=== PATIENT | male | born 1955 | race African-American/Black ===

== ENCOUNTER 2016-04-09 07:45 | Emergency (ER) | payer MEDICARE ==
[2016-04-09 08:23] LABS: APPEARANCE CLEAR (CLEAR); BILIRUBIN NEGATIVE (NEGATIVE); COLOR STRAW (YELLOW); GLUCOSE NEGATIVE (NEGATIVE); KETONE NEGATIVE (NEGATIVE); LEUKOCYTE ESTERASE NEGATIVE (NEGATIVE); NITRITE NEGATIVE (NEGATIVE); PROTEIN NEGATIVE (NEGATIVE); UROBILINOGEN NORMAL (NORMAL)
== END 2016-04-09 08:50 | disposition home or self-care (01) ==
LOC: D.ER 07:45
PROVIDERS: Emergency Medicine Emergency Medical Services
DX: M62.838 Other muscle spasm (principal); F10.129 Alcohol abuse with intoxication, unspecified; F17.200 Nicotine dependence, unspecified, uncomplicated

== ENCOUNTER 2016-06-05 17:29 | Emergency (ER) | payer MEDICARE ==
[2016-06-05 17:58] LABS: BASOPHILS 0.2 % (0.0-2.0); EOSINOPHILS 0.7 % (0-7); HEMATOCRIT 40.3 % (42.0-54.0); HEMOGLOBIN 13.7 g/dL (13.5-17.5); IMMATURE GRANULOCYTES 0.1 % (0-5); LYMPHOCYTES 38.9 % (15-50); MCH 30.1 pg (26.0-34.0); MCV 88.6 fL (80.0-100.0); MEAN PLATELET VOLUME 10.7 fL (7.4-10.4); MONOCYTES 7.2 % (2-11); NEUTROPHILS 52.9 % (40-80); PLATELET COUNT 210 10x3/uL (130-400); RBC 4.55 10x6/uL (4.20-6.10); RDW 13.5 % (11.5-14.5); WBC 9.1 10x3/uL (4.8-10.8)
[2016-06-05 18:14] LABS: ALBUMIN 4.1 g/dL (3.4-5.0); ANION GAP 12.3 mmol/L (8-16); BILIRUBIN - TOTAL 0.68 mg/dL (0.2-1.3); CALCIUM 8.2 mg/dL (8.5-10.1); CREATININE - SERUM 1.2 mg/dL (0.6-1.3); POTASSIUM - SERUM 4.3 mmol/L (3.5-5.1); PROTEIN - SERUM 7.9 g/dL (6.4-8.2)
[2016-06-06 03:37] LABS: APPEARANCE CLEAR (CLEAR); BILIRUBIN NEGATIVE (NEGATIVE); COLOR YELLOW (YELLOW); GLUCOSE NEGATIVE (NEGATIVE); KETONE SMALL mg/dL (NEGATIVE); LEUKOCYTE ESTERASE NEGATIVE (NEGATIVE); NITRITE NEGATIVE (NEGATIVE); PROTEIN NEGATIVE (NEGATIVE); SPECIFIC GRAVITY 1.025 (1.005-1.020); UROBILINOGEN NORMAL (NORMAL)
[2016-06-06 03:43] LABS: UDS - AMPHET NEGATIVE QUAL (NEGATIVE); UDS - BARB NEGATIVE QUAL (NEGATIVE); UDS - BENZO POSITIVE QUAL (NEGATIVE); UDS - COCAINE POSITIVE QUAL (NEGATIVE); UDS - METH NEGATIVE QUAL (NEGATIVE); UDS - OPIATE NEGATIVE QUAL (NEGATIVE); UDS - PCP NEGATIVE QUAL (NEGATIVE); UDS - THC NEGATIVE QUAL (NEGATIVE)
== END 2016-06-06 11:28 | disposition short-term general hospital (02) ==
LOC: D.ER 17:29
PROVIDERS: Emergency Medicine
DX: F10.129 Alcohol abuse with intoxication, unspecified (principal); F33.9 Major depressive disorder, recurrent, unspecified; R45.851 Suicidal ideations

== ENCOUNTER 2016-06-27 04:39 | Emergency (ER) | payer MEDICARE ==
[2016-06-27 05:10] LABS: BASOPHILS 0.1 % (0.0-2.0); EOSINOPHILS 0.5 % (0-7); HEMATOCRIT 36.7 % (42.0-54.0); HEMOGLOBIN 12.9 g/dL (13.5-17.5); IMMATURE GRANULOCYTES 0.2 % (0-5); LYMPHOCYTES 41.7 % (15-50); MCH 29.9 pg (26.0-34.0); MCHC 35.1 g/dL (31.0-37.0); MCV 85.2 fL (80.0-100.0); MEAN PLATELET VOLUME 11.1 fL (7.4-10.4); MONOCYTES 7.6 % (2-11); NEUTROPHILS 49.9 % (40-80); PLATELET COUNT 246 10x3/uL (130-400); RBC 4.31 10x6/uL (4.20-6.10); RDW 12.8 % (11.5-14.5); WBC 8.8 10x3/uL (4.8-10.8)
[2016-06-27 05:26] LABS: ALBUMIN 3.5 g/dL (3.4-5.0); ANION GAP 15.8 mmol/L (8-16); BILIRUBIN - TOTAL 0.34 mg/dL (0.2-1.3); CALCIUM 8.4 mg/dL (8.5-10.1); CARBON DIOXIDE 23.8 mmol/L (21.0-32.0); CREATININE - SERUM 1.2 mg/dL (0.6-1.3); POTASSIUM - SERUM 3.6 mmol/L (3.5-5.1); PROTEIN - SERUM 7.7 g/dL (6.4-8.2)
[2016-06-27 05:33] LABS: APPEARANCE CLEAR (CLEAR); BILIRUBIN NEGATIVE (NEGATIVE); COLOR YELLOW (YELLOW); GLUCOSE NEGATIVE (NEGATIVE); KETONE NEGATIVE (NEGATIVE); LEUKOCYTE ESTERASE NEGATIVE (NEGATIVE); NITRITE NEGATIVE (NEGATIVE); PROTEIN NEGATIVE (NEGATIVE); SPECIFIC GRAVITY 1.015 (1.005-1.020); UROBILINOGEN NORMAL (NORMAL)
[2016-06-27 05:39] LABS: UDS - AMPHET NEGATIVE QUAL (NEGATIVE); UDS - BARB NEGATIVE QUAL (NEGATIVE); UDS - BENZO POSITIVE QUAL (NEGATIVE); UDS - COCAINE POSITIVE QUAL (NEGATIVE); UDS - METH NEGATIVE QUAL (NEGATIVE); UDS - OPIATE NEGATIVE QUAL (NEGATIVE); UDS - PCP NEGATIVE QUAL (NEGATIVE); UDS - THC NEGATIVE QUAL (NEGATIVE)
== END 2016-06-27 12:11 | disposition left against medical advice (07) ==
LOC: D.ER 04:39
PROVIDERS: Family Medicine
DX: F10.10 Alcohol abuse, uncomplicated (principal); F10.129 Alcohol abuse with intoxication, unspecified; F31.9 Bipolar disorder, unspecified

== ENCOUNTER 2016-07-07 00:33 | Emergency (ER) | payer MEDICARE ==
[2016-07-07 01:49] LABS: BASOPHILS 0.1 % (0.0-2.0); EOSINOPHILS 0.1 % (0-7); HEMATOCRIT 37.6 % (42.0-54.0); HEMOGLOBIN 12.7 g/dL (13.5-17.5); IMMATURE GRANULOCYTES 0.1 % (0-5); LYMPHOCYTES 44.7 % (15-50); MCH 29.3 pg (26.0-34.0); MCHC 33.8 g/dL (31.0-37.0); MCV 86.8 fL (80.0-100.0); MEAN PLATELET VOLUME 10.8 fL (7.4-10.4); RBC 4.33 10x6/uL (4.20-6.10); RDW 13.1 % (11.5-14.5)
[2016-07-07 02:08] LABS: PLATELET COUNT 182 10x3/uL (130-400)
[2016-07-07 02:13] LABS: APPEARANCE CLEAR (CLEAR); BILIRUBIN NEGATIVE (NEGATIVE); COLOR YELLOW (YELLOW); GLUCOSE NEGATIVE (NEGATIVE); KETONE NEGATIVE (NEGATIVE); LEUKOCYTE ESTERASE NEGATIVE (NEGATIVE); NITRITE NEGATIVE (NEGATIVE); PROTEIN NEGATIVE (NEGATIVE); SPECIFIC GRAVITY 1.015 (1.005-1.020); UROBILINOGEN NORMAL (NORMAL)
[2016-07-07 02:18] LABS: ALBUMIN 3.7 g/dL (3.4-5.0); ANION GAP 18.2 mmol/L (8-16); BILIRUBIN - TOTAL 0.32 mg/dL (0.2-1.3); CALCIUM 8.4 mg/dL (8.5-10.1); CARBON DIOXIDE 21.6 mmol/L (21.0-32.0); CREATININE - SERUM 1.4 mg/dL (0.6-1.3); MAGNESIUM - SERUM 2.1 mg/dL (1.8-2.4); POTASSIUM - SERUM 3.8 mmol/L (3.5-5.1); PROTEIN - SERUM 7.8 g/dL (6.4-8.2)
[2016-07-07 02:20] LABS: UDS - AMPHET NEGATIVE QUAL (NEGATIVE); UDS - BARB NEGATIVE QUAL (NEGATIVE); UDS - BENZO POSITIVE QUAL (NEGATIVE); UDS - COCAINE POSITIVE QUAL (NEGATIVE); UDS - METH NEGATIVE QUAL (NEGATIVE); UDS - OPIATE NEGATIVE QUAL (NEGATIVE); UDS - PCP NEGATIVE QUAL (NEGATIVE); UDS - THC NEGATIVE QUAL (NEGATIVE)
== END 2016-07-08 05:24 | disposition short-term general hospital (02) ==
LOC: D.ER 00:33
PROVIDERS: Emergency Medicine
DX: F10.129 Alcohol abuse with intoxication, unspecified (principal); F10.10 Alcohol abuse, uncomplicated; D64.9 Anemia, unspecified; S37.009A Unspecified injury of unspecified kidney, initial encounter; X58.XXXA Exposure to other specified factors, initial encounter; Y93.89 Activity, other specified; Y92.89 Other specified places as the place of occurrence of the external cause; R44.3 Hallucinations, unspecified; F31.9 Bipolar disorder, unspecified; F14.10 Cocaine abuse, uncomplicated; F17.200 Nicotine dependence, unspecified, uncomplicated

== ENCOUNTER 2016-08-19 15:57 | Emergency (ER) | payer MEDICARE ==
[2016-08-19 19:23] LABS: BASOPHILS 0.2 % (0-2); EOSINOPHILS 0.7 % (0-7); HEMATOCRIT 38.7 % (42.0-54.0); HEMOGLOBIN 13.5 g/dL (13.5-17.5); IMMATURE GRANULOCYTES 0.2 % (0-5); MCHC 34.9 g/dL (31.0-37.0); MEAN PLATELET VOLUME 10.3 fL (7.4-10.4); NEUTROPHILS 51.9 % (40-80); PLATELET COUNT 151 10x3/uL (130-400); RDW 13.5 % (11.5-14.5); WBC 8.3 10x3/uL (4.8-10.8)
[2016-08-19 19:43] LABS: ALBUMIN 3.5 g/dL (3.4-5.0); ANION GAP 12.7 mmol/L (8-16); BILIRUBIN - TOTAL 0.23 mg/dL (0.2-1.3); CALCIUM 8.2 mg/dL (8.5-10.1); CARBON DIOXIDE 24.4 mmol/L (21.0-32.0); CREATININE - SERUM 1.1 mg/dL (0.6-1.3); MAGNESIUM - SERUM 2.2 mg/dL (1.8-2.4); POTASSIUM - SERUM 4.1 mmol/L (3.5-5.1); PROTEIN - SERUM 7.8 g/dL (6.4-8.2)
== END 2016-08-19 15:59 | disposition home or self-care (01) ==
LOC: D.ER 15:57
PROVIDERS: Nurse Practitioner Acute Care
DX: F10.10 Alcohol abuse, uncomplicated (principal); S00.01XA Abrasion of scalp, initial encounter; X58.XXXA Exposure to other specified factors, initial encounter; Y93.89 Activity, other specified; Y92.89 Other specified places as the place of occurrence of the external cause; F31.89 Other bipolar disorder; F17.200 Nicotine dependence, unspecified, uncomplicated

== ENCOUNTER 2016-10-28 16:23 | Emergency (ER) | payer MEDICARE | END 2016-10-28 19:00 | disposition left against medical advice (07) | LOC: D.ER 16:23 | DX: S99.919A Unspecified injury of unspecified ankle, initial encounter (principal); X58.XXXA Exposure to other specified factors, initial encounter; Y93.89 Activity, other specified; Y92.89 Other specified places as the place of occurrence of the external cause ==

== ENCOUNTER 2016-11-10 20:31 | Emergency (ER) | payer MEDICARE ==
[2016-11-10 21:30] LABS: ALBUMIN 3.4 g/dL (3.4-5.0); ANION GAP 14.5 mmol/L (8-16); BILIRUBIN - TOTAL 0.25 mg/dL (0.2-1.3); CALCIUM 8.1 mg/dL (8.5-10.1); CARBON DIOXIDE 22.8 mmol/L (21.0-32.0); CREATININE - SERUM 1.4 mg/dL (0.6-1.3); POTASSIUM - SERUM 3.3 mmol/L (3.5-5.1); PROTEIN - SERUM 7.3 g/dL (6.4-8.2)
[2016-11-10 21:32] LABS: PHENOBARBITAL 0.8 ug/mL (15.0-40.0)
[2016-11-10 21:40] LABS: BASOPHILS 0 % (0-2); EOSINOPHILS 0.5 % (0-7); HEMATOCRIT 42.2 % (42.0-54.0); HEMOGLOBIN 14.8 g/dL (13.5-17.5); IMMATURE GRANULOCYTES 0.2 % (0-5); LYMPHOCYTES 45.1 % (15-50); MCH 31.1 pg (26.0-34.0); MCHC 35.1 g/dL (31.0-37.0); MCV 88.7 fL (80.0-100.0); MEAN PLATELET VOLUME 10.7 fL (7.4-10.4); MONOCYTES 9.3 % (2-11); NEUTROPHILS 44.9 % (40-80); PLATELET COUNT 161 10x3/uL (130-400); RBC 4.76 10x6/uL (4.20-6.10); RDW 13.5 % (11.5-14.5); WBC 5.7 10x3/uL (4.8-10.8)
[2016-11-10 22:22] LABS: UDS - AMPHET NEGATIVE QUAL (NEGATIVE); UDS - BARB NEGATIVE QUAL (NEGATIVE); UDS - BENZO POSITIVE QUAL (NEGATIVE); UDS - COCAINE POSITIVE QUAL (NEGATIVE); UDS - METH NEGATIVE QUAL (NEGATIVE); UDS - OPIATE NEGATIVE QUAL (NEGATIVE); UDS - PCP NEGATIVE QUAL (NEGATIVE); UDS - THC NEGATIVE QUAL (NEGATIVE)
== END 2016-11-11 06:20 | disposition home or self-care (01) ==
LOC: D.ER 20:31
PROVIDERS: Physician Assistant
DX: F23 Brief psychotic disorder (principal); F31.9 Bipolar disorder, unspecified; Z91.14 Patient's other noncompliance with medication regimen; R44.3 Hallucinations, unspecified

== ENCOUNTER 2016-12-15 12:47 | Emergency (ER) | payer MEDICARE | END 2016-12-15 17:41 | disposition home or self-care (01) | LOC: D.ER 12:47 | DX: M62.838 Other muscle spasm (principal); M54.16 Radiculopathy, lumbar region ==

== ENCOUNTER 2017-02-05 03:33 | Emergency (ER) | payer MEDICARE ==
[2017-02-05 04:19] LABS: BASOPHILS 0.1 % (0-2); EOSINOPHILS 0 % (0-7); HEMATOCRIT 42.6 % (42.0-54.0); HEMOGLOBIN 14.6 g/dL (13.5-17.5); IMMATURE GRANULOCYTES 0.3 % (0-5); LYMPHOCYTES 26.2 % (15-50); MCH 30.6 pg (26.0-34.0); MCHC 34.3 g/dL (31.0-37.0); MCV 89.3 fL (80.0-100.0); MEAN PLATELET VOLUME 10.5 fL (7.4-10.4); MONOCYTES 7.7 % (2-11); NEUTROPHILS 65.7 % (40-80); RBC 4.77 10x6/uL (4.20-6.10); RDW 12.8 % (11.5-14.5); WBC 7.9 10x3/uL (4.8-10.8)
[2017-02-05 04:20] LABS: PLATELET COUNT 222 10x3/uL (130-400)
[2017-02-05 04:33] LABS: ALBUMIN 3.5 g/dL (3.4-5.0); ALKALINE PHOSPHATASE 55 U/L (46-116); ALT (SGPT) 42 U/L (10-68); BILIRUBIN - TOTAL 0.26 mg/dL (0.2-1.3); CALC OSMOLALITY 281 mosm/kg (275-300); CALCIUM 8.6 mg/dL (8.5-10.1); CARBON DIOXIDE 24.1 mmol/L (21.0-32.0); CHLORIDE - SERUM 107 mmol/L (98-107); GLUCOSE 121 mg/dL (74-106); POTASSIUM - SERUM 4.3 mmol/L (3.5-5.1); PROTEIN - SERUM 7.5 g/dL (6.4-8.2); SODIUM 141 mmol/L (136-145); UREA NITROGEN 13 mg/dL (7-18); eGFR NON AFRICAN AMERICAN 81 mL/min (90-120)
[2017-02-05 05:15] LABS: APPEARANCE CLEAR (CLEAR); BILIRUBIN NEGATIVE (NEGATIVE); COLOR STRAW (YELLOW); GLUCOSE NEGATIVE (NEGATIVE); KETONE NEGATIVE (NEGATIVE); NITRITE NEGATIVE (NEGATIVE); PROTEIN NEGATIVE (NEGATIVE); SPECIFIC GRAVITY 1.015 (1.005-1.020); UROBILINOGEN NORMAL (NORMAL)
[2017-02-05 05:25] LABS: UDS - AMPHET NEGATIVE QUAL (NEGATIVE); UDS - BARB NEGATIVE QUAL (NEGATIVE); UDS - BENZO NEGATIVE QUAL (NEGATIVE); UDS - COCAINE POSITIVE QUAL (NEGATIVE); UDS - OPIATE NEGATIVE QUAL (NEGATIVE); UDS - PCP NEGATIVE QUAL (NEGATIVE); UDS - THC NEGATIVE QUAL (NEGATIVE)
== END 2017-02-05 15:42 | disposition home or self-care (01) ==
LOC: D.ER 03:33
PROVIDERS: Emergency Medicine
DX: T46.4X2A Poisoning by angiotensin-converting-enzyme inhibitors, intentional self-harm, initial encounter (principal); T40.4X2A Poisoning by other synthetic narcotics, intentional self-harm, initial encounter; Y92.029 Unspecified place in mobile home as the place of occurrence of the external cause; F10.10 Alcohol abuse, uncomplicated; I10 Essential (primary) hypertension

== ENCOUNTER 2017-02-13 23:33 | Emergency (ER) | payer MEDICARE ==
[2017-02-13 23:47] LABS: APPEARANCE CLEAR (CLEAR); BILIRUBIN NEGATIVE (NEGATIVE); COLOR YELLOW (YELLOW); GLUCOSE NEGATIVE (NEGATIVE); KETONE NEGATIVE (NEGATIVE); NITRITE NEGATIVE (NEGATIVE); PROTEIN NEGATIVE (NEGATIVE); SPECIFIC GRAVITY 1.015 (1.005-1.020); UROBILINOGEN NORMAL (NORMAL)
[2017-02-13 23:57] LABS: UDS - AMPHET NEGATIVE QUAL (NEGATIVE); UDS - BARB NEGATIVE QUAL (NEGATIVE); UDS - BENZO NEGATIVE QUAL (NEGATIVE); UDS - COCAINE POSITIVE QUAL (NEGATIVE); UDS - OPIATE NEGATIVE QUAL (NEGATIVE); UDS - PCP NEGATIVE QUAL (NEGATIVE); UDS - THC NEGATIVE QUAL (NEGATIVE)
[2017-02-13 23:58] LABS: BASOPHILS 0.1 % (0-2); EOSINOPHILS 0 % (0-7); HEMATOCRIT 41.5 % (42.0-54.0); HEMOGLOBIN 14.5 g/dL (13.5-17.5); IMMATURE GRANULOCYTES 0.2 % (0-5); LYMPHOCYTES 23.5 % (15-50); MCH 30.7 pg (26.0-34.0); MCHC 34.9 g/dL (31.0-37.0); MCV 87.7 fL (80.0-100.0); MEAN PLATELET VOLUME 10.7 fL (7.4-10.4); MONOCYTES 6.8 % (2-11); NEUTROPHILS 69.4 % (40-80); RBC 4.73 10x6/uL (4.20-6.10); RDW 12.4 % (11.5-14.5); WBC 12.3 10x3/uL (4.8-10.8)
[2017-02-13 23:59] LABS: PLATELET COUNT 170 10x3/uL (130-400)
[2017-02-14 00:11] LABS: ALBUMIN 3.4 g/dL (3.4-5.0); ANION GAP 16.7 mmol/L (8-16); BILIRUBIN - TOTAL 0.32 mg/dL (0.2-1.3); CALCIUM 8.3 mg/dL (8.5-10.1); CARBON DIOXIDE 22.8 mmol/L (21.0-32.0); CREATININE - SERUM 1.4 mg/dL (0.6-1.3); POTASSIUM - SERUM 3.5 mmol/L (3.5-5.1); PROTEIN - SERUM 7.4 g/dL (6.4-8.2)
== END 2017-02-14 15:20 ==
LOC: D.ER 23:33
PROVIDERS: Family Medicine
DX: F23 Brief psychotic disorder (principal); F10.129 Alcohol abuse with intoxication, unspecified; Z86.59 Personal history of other mental and behavioral disorders

== ENCOUNTER 2017-05-07 16:34 | Emergency (ER) | payer MEDICARE ==
[2017-05-07 17:16] LABS: BASOPHILS 0.1 % (0-2); EOSINOPHILS 0.1 % (0-7); HEMATOCRIT 43.4 % (42.0-54.0); HEMOGLOBIN 15.3 g/dL (13.5-17.5); IMMATURE GRANULOCYTES 0.3 % (0-5); LYMPHOCYTES 13.9 % (15-50); MCH 30.8 pg (26.0-34.0); MCHC 35.3 g/dL (31.0-37.0); MCV 87.5 fL (80.0-100.0); MEAN PLATELET VOLUME 10.7 fL (7.4-10.4); MONOCYTES 6.1 % (2-11); NEUTROPHILS 79.5 % (40-80); RBC 4.96 10x6/uL (4.20-6.10); RDW 14.1 % (11.5-14.5); WBC 9.8 10x3/uL (4.8-10.8)
[2017-05-07 17:18] LABS: PLATELET COUNT 249 10x3/uL (130-400)
[2017-05-07 17:21] LABS: APPEARANCE CLEAR (CLEAR); BILIRUBIN NEGATIVE (NEGATIVE); COLOR YELLOW (YELLOW); GLUCOSE NEGATIVE (NEGATIVE); KETONE SMALL mg/dL (NEGATIVE); NITRITE NEGATIVE (NEGATIVE); PROTEIN NEGATIVE (NEGATIVE); SPECIFIC GRAVITY 1.025 (1.005-1.020); UROBILINOGEN NORMAL (NORMAL)
[2017-05-07 17:45] LABS: ALBUMIN 4.4 g/dL (3.4-5.0); ANION GAP 17.4 mmol/L (8-16); BILIRUBIN - TOTAL 0.71 mg/dL (0.2-1.3); CALCIUM 8.9 mg/dL (8.5-10.1); CARBON DIOXIDE 23.5 mmol/L (21.0-32.0); CREATININE - SERUM 1.1 mg/dL (0.6-1.3); POTASSIUM - SERUM 3.9 mmol/L (3.5-5.1); PROTEIN - SERUM 8.6 g/dL (6.4-8.2)
[2017-05-07 18:11] LABS: UDS - AMPHET NEGATIVE QUAL (NEGATIVE); UDS - BARB NEGATIVE QUAL (NEGATIVE); UDS - BENZO NEGATIVE QUAL (NEGATIVE); UDS - COCAINE POSITIVE QUAL (NEGATIVE); UDS - OPIATE NEGATIVE QUAL (NEGATIVE); UDS - PCP NEGATIVE QUAL (NEGATIVE); UDS - THC NEGATIVE QUAL (NEGATIVE)
== END 2017-05-07 22:26 | disposition short-term general hospital (02) ==
LOC: D.ER 16:34
PROVIDERS: Family Medicine
DX: R45.851 Suicidal ideations (principal); Z91.5 Personal history of self-harm

== ENCOUNTER 2017-06-13 18:02 | Emergency (ER) | payer MEDICARE ==
[2017-06-13 18:55] LABS: APPEARANCE CLEAR (CLEAR); BILIRUBIN NEGATIVE (NEGATIVE); COLOR STRAW (YELLOW); GLUCOSE NEGATIVE (NEGATIVE); KETONE NEGATIVE (NEGATIVE); NITRITE NEGATIVE (NEGATIVE); PROTEIN NEGATIVE (NEGATIVE); SPECIFIC GRAVITY 1.005 (1.005-1.020); UROBILINOGEN NORMAL (NORMAL)
[2017-06-13 19:02] LABS: UDS - AMPHET NEGATIVE QUAL (NEGATIVE); UDS - BARB NEGATIVE QUAL (NEGATIVE); UDS - BENZO NEGATIVE QUAL (NEGATIVE); UDS - COCAINE NEGATIVE QUAL (NEGATIVE); UDS - OPIATE NEGATIVE QUAL (NEGATIVE); UDS - PCP NEGATIVE QUAL (NEGATIVE); UDS - THC NEGATIVE QUAL (NEGATIVE)
[2017-06-13 19:25] LABS: BASOPHILS 0.1 % (0-2); EOSINOPHILS 0.4 % (0-7); HEMATOCRIT 40.9 % (42.0-54.0); HEMOGLOBIN 14.4 g/dL (13.5-17.5); IMMATURE GRANULOCYTES 0.3 % (0-5); LYMPHOCYTES 48.2 % (15-50); MCH 30.6 pg (26.0-34.0); MCHC 35.2 g/dL (31.0-37.0); MCV 86.8 fL (80.0-100.0); MEAN PLATELET VOLUME 10.9 fL (7.4-10.4); MONOCYTES 8.6 % (2-11); NEUTROPHILS 42.4 % (40-80); RBC 4.71 10x6/uL (4.20-6.10); RDW 12.7 % (11.5-14.5); WBC 7.2 10x3/uL (4.8-10.8)
[2017-06-13 19:26] LABS: PLATELET COUNT 169 10x3/uL (130-400)
[2017-06-13 19:32] LABS: ALKALINE PHOSPHATASE 65 U/L (46-116); ALT (SGPT) 45 U/L (10-68); BILIRUBIN - TOTAL 0.39 mg/dL (0.2-1.3); CALC OSMOLALITY 265 mosm/kg (275-300); CALCIUM 8.5 mg/dL (8.5-10.1); CARBON DIOXIDE 26.1 mmol/L (21.0-32.0); CHLORIDE - SERUM 99 mmol/L (98-107); GLUCOSE 124 mg/dL (74-106); POTASSIUM - SERUM 3.6 mmol/L (3.5-5.1); SODIUM 133 mmol/L (136-145); UREA NITROGEN 10 mg/dL (7-18); eGFR NON AFRICAN AMERICAN 81 mL/min (90-120)
== END 2017-06-14 14:36 | disposition home or self-care (01) ==
LOC: D.ER 18:02
PROVIDERS: Emergency Medicine
DX: F10.10 Alcohol abuse, uncomplicated (principal); R45.851 Suicidal ideations

== ENCOUNTER 2017-07-02 00:53 | Emergency (ER) | payer MEDICARE ==
[2017-07-02 02:08] LABS: BASOPHILS 0.2 % (0-2); HEMATOCRIT 41.2 % (42.0-54.0); HEMOGLOBIN 14.1 g/dL (13.5-17.5); IMMATURE GRANULOCYTES 0.2 % (0-5); LYMPHOCYTES 42.4 % (15-50); MCHC 34.2 g/dL (31.0-37.0); MCV 87.7 fL (80.0-100.0); MEAN PLATELET VOLUME 10.6 fL (7.4-10.4); MONOCYTES 7.5 % (2-11); NEUTROPHILS 48.7 % (40-80); PLATELET COUNT 208 10x3/uL (130-400); RDW 13.4 % (11.5-14.5); WBC 5.8 10x3/uL (4.8-10.8)
[2017-07-02 02:20] LABS: ALBUMIN 3.6 g/dL (3.4-5.0); ANION GAP 12.5 mmol/L (8-16); BILIRUBIN - TOTAL 0.23 mg/dL (0.2-1.3); CALCIUM 8.3 mg/dL (8.5-10.1); CARBON DIOXIDE 28.6 mmol/L (21.0-32.0); CREATININE - SERUM 1.1 mg/dL (0.6-1.3); POTASSIUM - SERUM 4.1 mmol/L (3.5-5.1); PROTEIN - SERUM 7.8 g/dL (6.4-8.2)
[2017-07-02 03:32] LABS: APPEARANCE CLEAR (CLEAR); BILIRUBIN NEGATIVE (NEGATIVE); COLOR YELLOW (YELLOW); GLUCOSE NEGATIVE (NEGATIVE); KETONE NEGATIVE (NEGATIVE); NITRITE NEGATIVE (NEGATIVE); PROTEIN NEGATIVE (NEGATIVE); SPECIFIC GRAVITY 1.015 (1.005-1.020); UROBILINOGEN NORMAL (NORMAL)
[2017-07-02 03:42] LABS: UDS - AMPHET NEGATIVE QUAL (NEGATIVE); UDS - BARB NEGATIVE QUAL (NEGATIVE); UDS - BENZO NEGATIVE QUAL (NEGATIVE); UDS - COCAINE NEGATIVE QUAL (NEGATIVE); UDS - OPIATE NEGATIVE QUAL (NEGATIVE); UDS - PCP NEGATIVE QUAL (NEGATIVE); UDS - THC NEGATIVE QUAL (NEGATIVE)
== END 2017-07-02 12:07 | disposition home or self-care (01) ==
LOC: D.ER 00:53
PROVIDERS: Family Medicine
DX: F10.129 Alcohol abuse with intoxication, unspecified (principal); R45.851 Suicidal ideations

== ENCOUNTER 2017-07-03 20:24 | Emergency (ER) | payer MEDICARE | END 2017-07-03 22:40 | disposition home or self-care (01) | LOC: D.ER 20:24 | DX: M79.601 Pain in right arm (principal); M79.604 Pain in right leg; Z76.5 Malingerer [conscious simulation] ==

== ENCOUNTER 2017-07-06 21:46 | Emergency (ER) | payer MEDICARE ==
[2017-07-06 22:54] LABS: UDS - AMPHET NEGATIVE QUAL (NEGATIVE); UDS - BARB NEGATIVE QUAL (NEGATIVE); UDS - BENZO NEGATIVE QUAL (NEGATIVE); UDS - COCAINE POSITIVE QUAL (NEGATIVE); UDS - OPIATE NEGATIVE QUAL (NEGATIVE); UDS - PCP NEGATIVE QUAL (NEGATIVE); UDS - THC NEGATIVE QUAL (NEGATIVE)
[2017-07-06 23:00] LABS: APPEARANCE CLEAR (CLEAR); BILIRUBIN NEGATIVE (NEGATIVE); COLOR YELLOW (YELLOW); GLUCOSE 500 mg/dL (NEGATIVE); KETONE NEGATIVE (NEGATIVE); NITRITE NEGATIVE (NEGATIVE); PROTEIN NEGATIVE (NEGATIVE); UROBILINOGEN NORMAL (NORMAL)
[2017-07-06 23:16] LABS: BASOPHILS 0.2 % (0-2); EOSINOPHILS 1.7 % (0-7); HEMATOCRIT 38.2 % (42.0-54.0); HEMOGLOBIN 13.2 g/dL (13.5-17.5); IMMATURE GRANULOCYTES 0.2 % (0-5); LYMPHOCYTES 42.1 % (15-50); MCHC 34.6 g/dL (31.0-37.0); MCV 86.8 fL (80.0-100.0); MEAN PLATELET VOLUME 10.5 fL (7.4-10.4); MONOCYTES 10.6 % (2-11); NEUTROPHILS 45.2 % (40-80); PLATELET COUNT 192 10x3/uL (130-400); RDW 13.2 % (11.5-14.5); WBC 5.2 10x3/uL (4.8-10.8)
[2017-07-06 23:31] LABS: ALBUMIN 3.4 g/dL (3.4-5.0); ALKALINE PHOSPHATASE 63 U/L (46-116); ALT (SGPT) 47 U/L (10-68); CALC OSMOLALITY 296 mosm/kg (275-300); CALCIUM 8.3 mg/dL (8.5-10.1); CHLORIDE - SERUM 111 mmol/L (98-107); POTASSIUM - SERUM 3.8 mmol/L (3.5-5.1); PROTEIN - SERUM 7.5 g/dL (6.4-8.2); SODIUM 147 mmol/L (136-145); UREA NITROGEN 16 mg/dL (7-18); eGFR NON AFRICAN AMERICAN 81 mL/min (90-120)
[2017-07-06 23:35] LABS: GLUCOSE 169 mg/dL (74-106)
[2017-07-06 23:41] LABS: ACETAMINOPHEN < 0.2 ug/mL (10.0-30.0)
== END 2017-07-07 00:25 | disposition other institution (70) ==
LOC: D.ER 21:46
PROVIDERS: Family Medicine
DX: I60.9 Nontraumatic subarachnoid hemorrhage, unspecified (principal); R45.851 Suicidal ideations; Z86.59 Personal history of other mental and behavioral disorders; G20 Parkinson's disease

== ENCOUNTER 2017-08-06 16:33 | Emergency (ER) | payer MEDICARE ==
[2017-08-06 17:26] LABS: BASOPHILS 0.1 % (0-2); EOSINOPHILS 0.1 % (0-7); HEMATOCRIT 41.5 % (42.0-54.0); HEMOGLOBIN 14.4 g/dL (13.5-17.5); IMMATURE GRANULOCYTES 0.2 % (0-5); LYMPHOCYTES 31.3 % (15-50); MCH 29.8 pg (26.0-34.0); MCHC 34.7 g/dL (31.0-37.0); MCV 85.9 fL (80.0-100.0); MEAN PLATELET VOLUME 10.1 fL (7.4-10.4); MONOCYTES 8.9 % (2-11); NEUTROPHILS 59.4 % (40-80); PLATELET COUNT 204 10x3/uL (130-400); RBC 4.83 10x6/uL (4.20-6.10); RDW 12.8 % (11.5-14.5); WBC 8.9 10x3/uL (4.8-10.8)
[2017-08-06 17:35] LABS: INR 1.14 (0.85-1.17); PROTIME 14.2 SECONDS (11.6-15.0)
[2017-08-06 17:38] LABS: ALBUMIN 4.1 g/dL (3.4-5.0); ANION GAP 18.6 mmol/L (8-16); BILIRUBIN - TOTAL 0.7 mg/dL (0.2-1.3); CALCIUM 9.3 mg/dL (8.5-10.1); CARBON DIOXIDE 21.4 mmol/L (21.0-32.0); CREATININE - SERUM 1.1 mg/dL (0.6-1.3); MAGNESIUM - SERUM 2.8 mg/dL (1.8-2.4); PROTEIN - SERUM 8.8 g/dL (6.4-8.2)
[2017-08-06 19:05] LABS: UDS - AMPHET NEGATIVE QUAL (NEGATIVE); UDS - BARB NEGATIVE QUAL (NEGATIVE); UDS - BENZO NEGATIVE QUAL (NEGATIVE); UDS - COCAINE POSITIVE QUAL (NEGATIVE); UDS - OPIATE NEGATIVE QUAL (NEGATIVE); UDS - PCP NEGATIVE QUAL (NEGATIVE); UDS - THC NEGATIVE QUAL (NEGATIVE)
[2017-08-06 23:48] LABS: APPEARANCE CLEAR (CLEAR); BILIRUBIN NEGATIVE (NEGATIVE); COLOR YELLOW (YELLOW); GLUCOSE NEGATIVE (NEGATIVE); KETONE NEGATIVE (NEGATIVE); NITRITE NEGATIVE (NEGATIVE); PROTEIN NEGATIVE (NEGATIVE); UROBILINOGEN NORMAL (NORMAL)
== END 2017-08-07 05:00 | disposition other institution (70) ==
LOC: D.ER 16:33
PROVIDERS: Emergency Medicine
DX: F10.10 Alcohol abuse, uncomplicated (principal); F10.129 Alcohol abuse with intoxication, unspecified; R45.851 Suicidal ideations; R45.850 Homicidal ideations; F14.10 Cocaine abuse, uncomplicated; F17.200 Nicotine dependence, unspecified, uncomplicated

== ENCOUNTER 2017-09-04 18:31 | Emergency (ER) | payer MEDICARE ==
[2017-09-04 18:55] LABS: BASOPHILS 0.3 % (0-2); EOSINOPHILS 0.8 % (0-7); HEMATOCRIT 40.4 % (42.0-54.0); IMMATURE GRANULOCYTES 0.4 % (0-5); LYMPHOCYTES 42.5 % (15-50); MCH 30.2 pg (26.0-34.0); MCHC 34.7 g/dL (31.0-37.0); MCV 87.3 fL (80.0-100.0); MONOCYTES 8.4 % (2-11); NEUTROPHILS 47.6 % (40-80); PLATELET COUNT 209 10x3/uL (130-400); RBC 4.63 10x6/uL (4.20-6.10); RDW 13.5 % (11.5-14.5); WBC 7.5 10x3/uL (4.8-10.8)
[2017-09-04 19:11] LABS: ALBUMIN 3.7 g/dL (3.4-5.0); ANION GAP 12.4 mmol/L (8-16); BILIRUBIN - TOTAL 0.2 mg/dL (0.2-1.3); CALCIUM 8.1 mg/dL (8.5-10.1); CARBON DIOXIDE 26.6 mmol/L (21.0-32.0); CREATININE - SERUM 1.2 mg/dL (0.6-1.3); MAGNESIUM - SERUM 2.5 mg/dL (1.8-2.4); PROTEIN - SERUM 7.9 g/dL (6.4-8.2)
[2017-09-05 03:31] LABS: APPEARANCE CLEAR (CLEAR); BILIRUBIN NEGATIVE (NEGATIVE); COLOR YELLOW (YELLOW); GLUCOSE NEGATIVE (NEGATIVE); KETONE NEGATIVE (NEGATIVE); NITRITE NEGATIVE (NEGATIVE); PROTEIN NEGATIVE (NEGATIVE); SPECIFIC GRAVITY 1.015 (1.005-1.020); UROBILINOGEN NORMAL (NORMAL)
[2017-09-05 03:41] LABS: UDS - AMPHET NEGATIVE QUAL (NEGATIVE); UDS - BARB NEGATIVE QUAL (NEGATIVE); UDS - BENZO NEGATIVE QUAL (NEGATIVE); UDS - COCAINE POSITIVE QUAL (NEGATIVE); UDS - OPIATE NEGATIVE QUAL (NEGATIVE); UDS - PCP NEGATIVE QUAL (NEGATIVE); UDS - THC NEGATIVE QUAL (NEGATIVE)
== END 2017-09-05 07:25 | disposition home or self-care (01) ==
LOC: D.ER 18:31
PROVIDERS: Emergency Medicine; Nurse Practitioner Family
DX: F10.10 Alcohol abuse, uncomplicated (principal); F17.200 Nicotine dependence, unspecified, uncomplicated

== ENCOUNTER 2017-09-26 00:11 | Emergency (ER) | payer MEDICARE, MEDICAID ==
[~2017-09-26] VITALS: Ht 162.6 cm; Wt 81.6 kg
[2017-09-26 00:23] VITALS: Ht 162.6 cm; Wt 81.6 kg
[2017-09-26] MEDS ORDERED: HALDOL5 MG (00:24)
[2017-09-26] MEDS ORDERED: PRINIVIL20 MG (00:25)
[2017-09-26] MEDS ORDERED: PROZAC20 MG PO (00:26)
[2017-09-26] MEDS ORDERED: NORVASC5 MG (00:26)
[2017-09-26 00:53] LABS: APPEARANCE CLEAR (CLEAR); BILIRUBIN NEGATIVE (NEGATIVE); COLOR YELLOW (YELLOW); GLUCOSE NEGATIVE (NEGATIVE); KETONE NEGATIVE (NEGATIVE); NITRITE NEGATIVE (NEGATIVE); PROTEIN NEGATIVE (NEGATIVE); SPECIFIC GRAVITY 1.015 (1.005-1.020); UROBILINOGEN NORMAL (NORMAL)
[2017-09-26 01:01] LABS: UDS - AMPHET NEGATIVE QUAL (NEGATIVE); UDS - BARB NEGATIVE QUAL (NEGATIVE); UDS - BENZO NEGATIVE QUAL (NEGATIVE); UDS - COCAINE POSITIVE QUAL (NEGATIVE); UDS - OPIATE NEGATIVE QUAL (NEGATIVE); UDS - PCP NEGATIVE QUAL (NEGATIVE); UDS - THC NEGATIVE QUAL (NEGATIVE)
[2017-09-26 02:56] LABS: BASOPHILS 0.3 % (0-2); EOSINOPHILS 0.1 % (0-7); HEMATOCRIT 39.4 % (42.0-54.0); HEMOGLOBIN 13.8 g/dL (13.5-17.5); IMMATURE GRANULOCYTES 0.3 % (0-5); LYMPHOCYTES 35.4 % (15-50); MCH 30.6 pg (26.0-34.0); MCV 87.4 fL (80.0-100.0); MEAN PLATELET VOLUME 9.9 fL (7.4-10.4); MONOCYTES 5.9 % (2-11); PLATELET COUNT 233 10x3/uL (130-400); RBC 4.51 10x6/uL (4.20-6.10); RDW 13.3 % (11.5-14.5); WBC 7.9 10x3/uL (4.8-10.8)
[2017-09-26 03:10] LABS: ALBUMIN 3.8 g/dL (3.4-5.0); BILIRUBIN - TOTAL 0.29 mg/dL (0.2-1.3); CALCIUM 8.8 mg/dL (8.5-10.1); CARBON DIOXIDE 22.4 mmol/L (21.0-32.0); CREATININE - SERUM 1.5 mg/dL (0.6-1.3); POTASSIUM - SERUM 4.4 mmol/L (3.5-5.1); PROTEIN - SERUM 7.9 g/dL (6.4-8.2)
[2017-09-26 08:46] VITALS: BP 117/61
== END 2017-09-26 09:32 ==
LOC: D.ER 00:11
PROVIDERS: Family Medicine
DX: F32.9 Major depressive disorder, single episode, unspecified (principal); R45.851 Suicidal ideations; F29 Unspecified psychosis not due to a substance or known physiological condition; R45.850 Homicidal ideations; Z59.0 Homelessness

== ENCOUNTER 2017-10-12 02:15 | Emergency (ER) | payer MEDICARE, MEDICAID ==
[~2017-10-12] VITALS: Ht 162.6 cm; Wt 81.8 kg
[~2017-10-12 02:15] MED LIST: HALDOL5 MG; NORVASC5 MG; PRINIVIL20 MG; PROZAC20 MG PO
[2017-10-12 02:18] VITALS: Ht 162.6 cm; Wt 81.8 kg
[2017-10-12 02:42] LABS: APPEARANCE CLEAR (CLEAR); BILIRUBIN NEGATIVE (NEGATIVE); COLOR YELLOW (YELLOW); GLUCOSE 50 mg/dL (NEGATIVE); KETONE NEGATIVE (NEGATIVE); NITRITE NEGATIVE (NEGATIVE); PROTEIN TRACE mg/dL (NEGATIVE); SPECIFIC GRAVITY 1.025 (1.005-1.020); UROBILINOGEN NORMAL (NORMAL)
[2017-10-12 02:50] LABS: UDS - AMPHET NEGATIVE QUAL (NEGATIVE); UDS - BARB NEGATIVE QUAL (NEGATIVE); UDS - BENZO NEGATIVE QUAL (NEGATIVE); UDS - COCAINE POSITIVE QUAL (NEGATIVE); UDS - OPIATE NEGATIVE QUAL (NEGATIVE); UDS - PCP NEGATIVE QUAL (NEGATIVE); UDS - THC NEGATIVE QUAL (NEGATIVE)
[2017-10-12 03:22] LABS: BASOPHILS 0.2 % (0-2); EOSINOPHILS 0.7 % (0-7); HEMATOCRIT 39.9 % (42.0-54.0); HEMOGLOBIN 14.2 g/dL (13.5-17.5); IMMATURE GRANULOCYTES 0.2 % (0-5); LYMPHOCYTES 42.4 % (15-50); MCH 30.9 pg (26.0-34.0); MCHC 35.6 g/dL (31.0-37.0); MCV 86.7 fL (80.0-100.0); MEAN PLATELET VOLUME 10.6 fL (7.4-10.4); MONOCYTES 10.3 % (2-11); NEUTROPHILS 46.2 % (40-80); PLATELET COUNT 193 10x3/uL (130-400); RDW 12.9 % (11.5-14.5); WBC 5.7 10x3/uL (4.8-10.8)
[2017-10-12 03:35] LABS: ALBUMIN 3.7 g/dL (3.4-5.0); ANION GAP 13.4 mmol/L (8-16); BILIRUBIN - TOTAL 0.5 mg/dL (0.2-1.3); CALCIUM 8.1 mg/dL (8.5-10.1); CARBON DIOXIDE 25.2 mmol/L (21.0-32.0); CREATININE - SERUM 1.2 mg/dL (0.6-1.3); POTASSIUM - SERUM 3.6 mmol/L (3.5-5.1); PROTEIN - SERUM 7.9 g/dL (6.4-8.2)
[2017-10-12 09:06] VITALS: BP 160/058
== END 2017-10-12 09:12 | disposition home or self-care (01) ==
LOC: D.ER 02:15
PROVIDERS: Emergency Medicine
DX: F33.9 Major depressive disorder, recurrent, unspecified (principal); I10 Essential (primary) hypertension

== ENCOUNTER 2017-10-15 19:25 | Emergency (ER) | payer MEDICARE, MEDICAID ==
[~2017-10-15] VITALS: Ht 162.6 cm; Wt 72.6 kg
[2017-10-15 19:37] VITALS: Ht 162.6 cm; Wt 72.6 kg
[2017-10-15 20:02] LABS: COLOR DK YELLOW (YELLOW)
[2017-10-15 20:02] LABS: BASOPHILS 0.1 % (0-2); EOSINOPHILS 0.1 % (0-7); HEMATOCRIT 39.6 % (42.0-54.0); HEMOGLOBIN 13.8 g/dL (13.5-17.5); IMMATURE GRANULOCYTES 0.1 % (0-5); MCH 30.6 pg (26.0-34.0); MCHC 34.8 g/dL (31.0-37.0); MCV 87.8 fL (80.0-100.0); MEAN PLATELET VOLUME 10.3 fL (7.4-10.4); MONOCYTES 7.9 % (2-11); NEUTROPHILS 54.8 % (40-80); PLATELET COUNT 189 10x3/uL (130-400); RBC 4.51 10x6/uL (4.20-6.10); RDW 13.4 % (11.5-14.5); WBC 6.7 10x3/uL (4.8-10.8)
[2017-10-15 20:03] LABS: APPEARANCE CLEAR (CLEAR); BILIRUBIN NEGATIVE (NEGATIVE); GLUCOSE NEGATIVE (NEGATIVE); KETONE NEGATIVE (NEGATIVE); NITRITE NEGATIVE (NEGATIVE); PROTEIN NEGATIVE (NEGATIVE); UROBILINOGEN NORMAL (NORMAL)
[2017-10-15 20:08] LABS: UDS - AMPHET NEGATIVE QUAL (NEGATIVE); UDS - BARB NEGATIVE QUAL (NEGATIVE); UDS - BENZO NEGATIVE QUAL (NEGATIVE); UDS - COCAINE POSITIVE QUAL (NEGATIVE); UDS - OPIATE NEGATIVE QUAL (NEGATIVE); UDS - PCP NEGATIVE QUAL (NEGATIVE); UDS - THC NEGATIVE QUAL (NEGATIVE)
[2017-10-15 20:34] LABS: ANION GAP 16.2 mmol/L (8-16); CALCIUM 8.7 mg/dL (8.5-10.1); CARBON DIOXIDE 22.1 mmol/L (21.0-32.0); CREATININE - SERUM 1.1 mg/dL (0.6-1.3); POTASSIUM - SERUM 4.3 mmol/L (3.5-5.1); THYROID STIMULATING HORMONE 1.26 uIU/mL (0.36-3.74)
[2017-10-16 07:39] VITALS: BP 128/77
== END 2017-10-16 07:42 ==
LOC: D.ER 19:25
PROVIDERS: Family Medicine
DX: F32.9 Major depressive disorder, single episode, unspecified (principal); F14.10 Cocaine abuse, uncomplicated; F10.10 Alcohol abuse, uncomplicated; R45.851 Suicidal ideations; B19.20 Unspecified viral hepatitis C without hepatic coma; I10 Essential (primary) hypertension

== ENCOUNTER 2017-11-10 02:14 | Emergency (ER) | payer MEDICARE, MEDICAID ==
[~2017-11-10] VITALS: Ht 162.6 cm; Wt 83.2 kg
[2017-11-10 02:27] VITALS: Ht 162.6 cm; Wt 83.2 kg
[2017-11-10 03:14] LABS: APPEARANCE CLEAR (CLEAR); BILIRUBIN NEGATIVE (NEGATIVE); COLOR YELLOW (YELLOW); GLUCOSE NEGATIVE (NEGATIVE); KETONE NEGATIVE (NEGATIVE); NITRITE NEGATIVE (NEGATIVE); PROTEIN NEGATIVE (NEGATIVE); UROBILINOGEN NORMAL (NORMAL)
[2017-11-10 03:19] LABS: UDS - AMPHET NEGATIVE QUAL (NEGATIVE); UDS - BARB NEGATIVE QUAL (NEGATIVE); UDS - BENZO POSITIVE QUAL (NEGATIVE); UDS - COCAINE POSITIVE QUAL (NEGATIVE); UDS - OPIATE NEGATIVE QUAL (NEGATIVE); UDS - PCP NEGATIVE QUAL (NEGATIVE); UDS - THC NEGATIVE QUAL (NEGATIVE)
[2017-11-10 03:24] LABS: BASOPHILS 0.2 % (0-2); EOSINOPHILS 0 % (0-7); HEMATOCRIT 41.2 % (42.0-54.0); HEMOGLOBIN 14.5 g/dL (13.5-17.5); LYMPHOCYTES 37.8 % (15-50); MCH 30.8 pg (26.0-34.0); MCHC 35.2 g/dL (31.0-37.0); MCV 87.5 fL (80.0-100.0); MEAN PLATELET VOLUME 10.1 fL (7.4-10.4); MONOCYTES 10.9 % (2-11); NEUTROPHILS 51.1 % (40-80); RBC 4.71 10x6/uL (4.20-6.10); RDW 12.9 % (11.5-14.5); WBC 5.2 10x3/uL (4.8-10.8)
[2017-11-10 03:25] LABS: PLATELET COUNT 237 10x3/uL (130-400)
[2017-11-10 03:36] LABS: ALBUMIN 3.8 g/dL (3.4-5.0); ANION GAP 12.5 mmol/L (8-16); BILIRUBIN - TOTAL 0.59 mg/dL (0.2-1.3); CALCIUM 8.5 mg/dL (8.5-10.1); CARBON DIOXIDE 27.5 mmol/L (21.0-32.0); CREATININE - SERUM 1.1 mg/dL (0.6-1.3); PROTEIN - SERUM 7.7 g/dL (6.4-8.2)
[2017-11-10 11:14] VITALS: BP 138/088
== END 2017-11-10 11:16 ==
LOC: D.ER 02:14
PROVIDERS: Family Medicine
DX: R45.851 Suicidal ideations (principal); F32.9 Major depressive disorder, single episode, unspecified; F29 Unspecified psychosis not due to a substance or known physiological condition

== ENCOUNTER 2017-12-10 19:31 | Emergency (ER) | payer MEDICARE, MEDICAID ==
[~2017-12-10] VITALS: Ht 167.6 cm; Wt 81.8 kg
[2017-12-10 19:41] VITALS: Ht 167.6 cm; Wt 81.8 kg
[2017-12-10 20:16] LABS: APPEARANCE CLEAR (CLEAR); BILIRUBIN NEGATIVE (NEGATIVE); COLOR YELLOW (YELLOW); GLUCOSE 50 mg/dL (NEGATIVE); KETONE NEGATIVE (NEGATIVE); NITRITE NEGATIVE (NEGATIVE); PROTEIN NEGATIVE (NEGATIVE); SPECIFIC GRAVITY 1.025 (1.005-1.020); UROBILINOGEN NORMAL (NORMAL)
[2017-12-10 20:42] LABS: HEMATOCRIT 43.4 % (42.0-54.0); HEMOGLOBIN 15.1 g/dL (13.5-17.5); MCH 30.2 pg (26.0-34.0); MCV 86.8 fL (80.0-100.0)
[2017-12-10 20:43] LABS: BASOPHILS 0.1 % (0-2); EOSINOPHILS 0.3 % (0-7); IMMATURE GRANULOCYTES 0.2 % (0-5); LYMPHOCYTES 24.2 % (15-50); MCHC 34.8 g/dL (31.0-37.0); MEAN PLATELET VOLUME 10.6 fL (7.4-10.4); MONOCYTES 8.4 % (2-11); NEUTROPHILS 66.8 % (40-80); PLATELET COUNT 190 10x3/uL (130-400); RDW 13.3 % (11.5-14.5)
[2017-12-10 21:12] LABS: ALBUMIN 3.9 g/dL (3.4-5.0); ANION GAP 10.2 mmol/L (8-16); BILIRUBIN - TOTAL 0.45 mg/dL (0.2-1.3); CALCIUM 8.5 mg/dL (8.5-10.1); CARBON DIOXIDE 28.7 mmol/L (21.0-32.0); CREATININE - SERUM 1.1 mg/dL (0.6-1.3); POTASSIUM - SERUM 4.9 mmol/L (3.5-5.1); PROTEIN - SERUM 8.2 g/dL (6.4-8.2)
[2017-12-10 22:43] LABS: UDS - AMPHET NEGATIVE QUAL (NEGATIVE); UDS - BARB NEGATIVE QUAL (NEGATIVE); UDS - BENZO NEGATIVE QUAL (NEGATIVE); UDS - COCAINE POSITIVE QUAL (NEGATIVE); UDS - OPIATE NEGATIVE QUAL (NEGATIVE); UDS - PCP NEGATIVE QUAL (NEGATIVE); UDS - THC NEGATIVE QUAL (NEGATIVE)
[2017-12-11 03:08] VITALS: BP 172/90
== END 2017-12-11 00:52 | disposition other institution (70) ==
LOC: D.ER 19:31
PROVIDERS: Emergency Medicine
DX: R45.851 Suicidal ideations (principal); F10.129 Alcohol abuse with intoxication, unspecified; F10.10 Alcohol abuse, uncomplicated; F14.10 Cocaine abuse, uncomplicated; F34.1 Dysthymic disorder; S02.609A Fracture of mandible, unspecified, initial encounter for closed fracture; X58.XXXA Exposure to other specified factors, initial encounter; Y93.89 Activity, other specified; Y92.89 Other specified places as the place of occurrence of the external cause; Z86.59 Personal history of other mental and behavioral disorders

== ENCOUNTER 2018-04-01 17:12 | Emergency (ER) | payer MEDICARE, MEDICAID ==
[~2018-04-01] VITALS: Ht 167.6 cm; Wt 81.8 kg
[2018-04-01 17:27] VITALS: Ht 167.6 cm; Wt 81.8 kg
[2018-04-01 18:04] LABS: BASOPHILS 0.3 % (0-2); EOSINOPHILS 0.5 % (0-7); HEMATOCRIT 34.9 % (42.0-54.0); IMMATURE GRANULOCYTES 0.3 % (0-5); LYMPHOCYTES 34.2 % (15-50); MCH 29.6 pg (26.0-34.0); MCHC 34.4 g/dL (31.0-37.0); MCV 86.2 fL (80.0-100.0); MEAN PLATELET VOLUME 10.1 fL (7.4-10.4); MONOCYTES 11.5 % (2-11); NEUTROPHILS 53.2 % (40-80); PLATELET COUNT 198 10x3/uL (130-400); RBC 4.05 10x6/uL (4.20-6.10); WBC 7.8 10x3/uL (4.8-10.8)
[2018-04-01 18:20] LABS: ALBUMIN 3.6 g/dL (3.4-5.0); ALKALINE PHOSPHATASE 62 U/L (46-116); ALT (SGPT) 40 U/L (10-68); BILIRUBIN - TOTAL 0.31 mg/dL (0.2-1.3); CALC OSMOLALITY 271 mosm/kg (275-300); CALCIUM 8.5 mg/dL (8.5-10.1); CARBON DIOXIDE 21.5 mmol/L (21.0-32.0); CHLORIDE - SERUM 102 mmol/L (98-107); CREATININE - SERUM 0.8 mg/dL (0.6-1.3); GLUCOSE 104 mg/dL (74-106); POTASSIUM - SERUM 3.5 mmol/L (3.5-5.1); PROTEIN - SERUM 7.9 g/dL (6.4-8.2); SODIUM 135 mmol/L (136-145); UREA NITROGEN 17 mg/dL (7-18); eGFR NON AFRICAN AMERICAN > 90 mL/min (90-120)
[2018-04-01 20:00] LABS: APPEARANCE CLEAR (CLEAR); BILIRUBIN NEGATIVE (NEGATIVE); COLOR YELLOW (YELLOW); GLUCOSE NEGATIVE (NEGATIVE); KETONE NEGATIVE (NEGATIVE); NITRITE NEGATIVE (NEGATIVE); PROTEIN NEGATIVE (NEGATIVE); UROBILINOGEN NORMAL (NORMAL)
[2018-04-01 20:20] LABS: UDS - AMPHET NEGATIVE QUAL (NEGATIVE); UDS - BARB NEGATIVE QUAL (NEGATIVE); UDS - BENZO NEGATIVE QUAL (NEGATIVE); UDS - COCAINE NEGATIVE QUAL (NEGATIVE); UDS - OPIATE NEGATIVE QUAL (NEGATIVE); UDS - PCP NEGATIVE QUAL (NEGATIVE); UDS - THC NEGATIVE QUAL (NEGATIVE)
[2018-04-02 05:14] VITALS: BP 130/87
== END 2018-04-02 05:15 ==
LOC: D.ER 17:12
PROVIDERS: Emergency Medicine
DX: F32.9 Major depressive disorder, single episode, unspecified (principal); F10.129 Alcohol abuse with intoxication, unspecified; Z86.59 Personal history of other mental and behavioral disorders; Z91.14 Patient's other noncompliance with medication regimen

== ENCOUNTER 2018-04-29 17:46 | Emergency (ER) | payer MEDICARE, MEDICAID ==
[~2018-04-29] VITALS: Ht 167.6 cm; Wt 75.0 kg
[2018-04-29 18:16] VITALS: Ht 167.6 cm; Wt 75.0 kg
[2018-04-29 18:56] LABS: BASOPHILS 0.3 % (0-2); EOSINOPHILS 1.3 % (0-7); HEMATOCRIT 42.4 % (42.0-54.0); HEMOGLOBIN 14.8 g/dL (13.5-17.5); IMMATURE GRANULOCYTES 0.3 % (0-5); LYMPHOCYTES 43.4 % (15-50); MCH 30.5 pg (26.0-34.0); MCHC 34.9 g/dL (31.0-37.0); MCV 87.4 fL (80.0-100.0); MEAN PLATELET VOLUME 10.6 fL (7.4-10.4); MONOCYTES 9.1 % (2-11); NEUTROPHILS 45.6 % (40-80); PLATELET COUNT 194 10x3/uL (130-400); RBC 4.85 10x6/uL (4.20-6.10); RDW 13.4 % (11.5-14.5); WBC 7.9 10x3/uL (4.8-10.8)
[2018-04-29 19:07] LABS: UDS - AMPHET NEGATIVE QUAL (NEGATIVE); UDS - BARB NEGATIVE QUAL (NEGATIVE); UDS - BENZO NEGATIVE QUAL (NEGATIVE); UDS - COCAINE NEGATIVE QUAL (NEGATIVE); UDS - OPIATE NEGATIVE QUAL (NEGATIVE); UDS - PCP NEGATIVE QUAL (NEGATIVE); UDS - THC NEGATIVE QUAL (NEGATIVE)
[2018-04-29 19:11] LABS: ALKALINE PHOSPHATASE 79 U/L (46-116); ALT (SGPT) 56 U/L (10-68); BILIRUBIN - TOTAL 0.32 mg/dL (0.2-1.3); CALC OSMOLALITY 281 mosm/kg (275-300); CALCIUM 8.4 mg/dL (8.5-10.1); CARBON DIOXIDE 25.4 mmol/L (21.0-32.0); CHLORIDE - SERUM 103 mmol/L (98-107); GLUCOSE 110 mg/dL (74-106); POTASSIUM - SERUM 3.7 mmol/L (3.5-5.1); PROTEIN - SERUM 8.5 g/dL (6.4-8.2); SODIUM 141 mmol/L (136-145); UREA NITROGEN 12 mg/dL (7-18); eGFR NON AFRICAN AMERICAN 81 mL/min (90-120)
[2018-04-29 19:13] LABS: MAGNESIUM - SERUM 2.3 mg/dL (1.8-2.4)
[2018-04-29 19:17] LABS: APPEARANCE CLEAR (CLEAR); BILIRUBIN NEGATIVE (NEGATIVE); COLOR STRAW (YELLOW); GLUCOSE NEGATIVE (NEGATIVE); KETONE NEGATIVE (NEGATIVE); NITRITE NEGATIVE (NEGATIVE); PROTEIN NEGATIVE (NEGATIVE); SPECIFIC GRAVITY 1.005 (1.005-1.020); UROBILINOGEN NORMAL (NORMAL)
[2018-04-30 03:53] VITALS: BP 140/79
== END 2018-04-30 06:01 ==
LOC: D.ER 17:46
PROVIDERS: Family Medicine
DX: F10.129 Alcohol abuse with intoxication, unspecified (principal); F41.9 Anxiety disorder, unspecified; R45.851 Suicidal ideations; F17.200 Nicotine dependence, unspecified, uncomplicated

== ENCOUNTER 2018-05-11 19:44 | Emergency (ER) | payer MEDICARE, MEDICAID ==
[~2018-05-11] VITALS: Ht 167.6 cm; Wt 81.8 kg
[2018-05-11 19:53] VITALS: Ht 167.6 cm; Wt 81.8 kg
[2018-05-11 20:38] LABS: BASOPHILS 0.3 % (0-2); EOSINOPHILS 1.6 % (0-7); HEMATOCRIT 40.1 % (42.0-54.0); HEMOGLOBIN 13.9 g/dL (13.5-17.5); IMMATURE GRANULOCYTES 0.2 % (0-5); LYMPHOCYTES 46.8 % (15-50); MCH 30.2 pg (26.0-34.0); MCHC 34.7 g/dL (31.0-37.0); MCV 87.2 fL (80.0-100.0); MEAN PLATELET VOLUME 10.7 fL (7.4-10.4); MONOCYTES 8.7 % (2-11); NEUTROPHILS 42.4 % (40-80); PLATELET COUNT 169 10x3/uL (130-400); RDW 12.6 % (11.5-14.5); WBC 6.3 10x3/uL (4.8-10.8)
[2018-05-11 20:57] LABS: ALBUMIN 3.6 g/dL (3.4-5.0); ALKALINE PHOSPHATASE 85 U/L (46-116); ALT (SGPT) 50 U/L (10-68); BILIRUBIN - TOTAL 0.31 mg/dL (0.2-1.3); CALC OSMOLALITY 276 mosm/kg (275-300); CALCIUM 8.5 mg/dL (8.5-10.1); CARBON DIOXIDE 25.1 mmol/L (21.0-32.0); CHLORIDE - SERUM 104 mmol/L (98-107); GLUCOSE 94 mg/dL (74-106); POTASSIUM - SERUM 4.3 mmol/L (3.5-5.1); PROTEIN - SERUM 7.9 g/dL (6.4-8.2); SODIUM 138 mmol/L (136-145); UREA NITROGEN 14 mg/dL (7-18); eGFR NON AFRICAN AMERICAN 81 mL/min (90-120)
[2018-05-11 22:54] LABS: APPEARANCE CLEAR (CLEAR); BILIRUBIN NEGATIVE (NEGATIVE); COLOR YELLOW (YELLOW); GLUCOSE NEGATIVE (NEGATIVE); KETONE NEGATIVE (NEGATIVE); NITRITE NEGATIVE (NEGATIVE); PROTEIN NEGATIVE (NEGATIVE); SPECIFIC GRAVITY 1.015 (1.005-1.020); UROBILINOGEN NORMAL (NORMAL)
[2018-05-11 23:01] LABS: UDS - AMPHET NEGATIVE QUAL (NEGATIVE); UDS - BARB NEGATIVE QUAL (NEGATIVE); UDS - BENZO NEGATIVE QUAL (NEGATIVE); UDS - COCAINE NEGATIVE QUAL (NEGATIVE); UDS - OPIATE NEGATIVE QUAL (NEGATIVE); UDS - PCP NEGATIVE QUAL (NEGATIVE); UDS - THC NEGATIVE QUAL (NEGATIVE)
[2018-05-12 05:07] VITALS: BP 145/85
== END 2018-05-12 08:03 ==
LOC: D.ER 19:44
PROVIDERS: Family Medicine
DX: R45.851 Suicidal ideations (principal); F10.129 Alcohol abuse with intoxication, unspecified; F41.9 Anxiety disorder, unspecified; F10.10 Alcohol abuse, uncomplicated; Z86.59 Personal history of other mental and behavioral disorders

== ENCOUNTER 2018-11-27 17:54 | Observation (INO) | payer MEDICARE, MEDICAID ==
[~2018-11-27] VITALS: Ht 167.6 cm; Wt 79.5 kg
[2018-11-27 18:15] VITALS: BP 105/63
[2018-11-27 18:58] LABS: APTT 23.6 SECONDS (22.8-39.4); BASOPHILS 0.1 % (0-2); EOSINOPHILS 0.1 % (0-7); HEMATOCRIT 39.4 % (42.0-54.0); HEMOGLOBIN 13.7 g/dL (13.5-17.5); IMMATURE GRANULOCYTES 0.3 % (0-5); INR 1.2 (0.85-1.17); MCH 29.8 pg (26.0-34.0); MCHC 34.8 g/dL (31.0-37.0); MCV 85.7 fL (80.0-100.0); MEAN PLATELET VOLUME 10.9 fL (7.4-10.4); MONOCYTES 3.7 % (2-11); NEUTROPHILS 78.8 % (40-80); PLATELET COUNT 194 10x3/uL (130-400); PROTIME 14.7 SECONDS (11.6-15.0); RDW 13.9 % (11.5-14.5); WBC 7.8 10x3/uL (4.8-10.8)
[2018-11-27 19:11] LABS: ALBUMIN 3.9 g/dL (3.4-5.0); ALKALINE PHOSPHATASE 71 U/L (46-116); ALT (SGPT) 54 U/L (10-68); BILIRUBIN - TOTAL 0.31 mg/dL (0.2-1.3); CALC OSMOLALITY 286 mosm/kg (275-300); CALCIUM 9.1 mg/dL (8.5-10.1); CARBON DIOXIDE 21.6 mmol/L (21.0-32.0); CHLORIDE - SERUM 105 mmol/L (98-107); GLUCOSE 149 mg/dL (74-106); POTASSIUM - SERUM 3.9 mmol/L (3.5-5.1); PROTEIN - SERUM 8.2 g/dL (6.4-8.2); SODIUM 141 mmol/L (136-145); UREA NITROGEN 20 mg/dL (7-18); eGFR NON AFRICAN AMERICAN 36 mL/min (90-120)
[2018-11-27 19:17] LABS: CREATINE KINASE 519 UL (21-232); MAGNESIUM - SERUM 2.3 mg/dL (1.8-2.4); THYROID STIMULATING HORMONE 3.95 uIU/mL (0.36-3.74)
[2018-11-27 19:21] LABS: TROPONIN-I < 0.017 ng/mL (0.000-0.060)
[2018-11-27 20:03] VITALS: BP 99/69
[2018-11-27 20:30] LABS: APPEARANCE CLEAR (CLEAR); BILIRUBIN NEGATIVE (NEGATIVE); COLOR YELLOW (YELLOW); GLUCOSE NEGATIVE (NEGATIVE); KETONE NEGATIVE (NEGATIVE); NITRITE NEGATIVE (NEGATIVE); PROTEIN 1+ mg/dL (NEGATIVE); SPECIFIC GRAVITY 1.015 (1.005-1.020); UROBILINOGEN NORMAL (NORMAL)
[2018-11-27 20:37] LABS: UDS - AMPHET NEGATIVE QUAL (NEGATIVE); UDS - BARB NEGATIVE QUAL (NEGATIVE); UDS - BENZO NEGATIVE QUAL (NEGATIVE); UDS - COCAINE POSITIVE QUAL (NEGATIVE); UDS - OPIATE NEGATIVE QUAL (NEGATIVE); UDS - PCP NEGATIVE QUAL (NEGATIVE); UDS - THC NEGATIVE QUAL (NEGATIVE)
[2018-11-27 21:27] VITALS: BP 115/67
--- NOTE | 2018-11-27 21:45 | NUR ---
PT RESTING ON BED. PT WAKES TO VERBAL STIMULI AND ANSWERED NAME APPROPRIATELY. NO S/S OF ACUTE DISTRESS NOTED.
[2018-11-27 22:30] VITALS: BP 120/68
[2018-11-27 23:30] VITALS: BP 118/73
[2018-11-28] VITALS (7 sets, daily range): BP systolic 128–156; BP diastolic 69–85; Ht 167.6 cm; Wt 79.5 kg
[2018-11-28] MEDS ORDERED: LISINOPRIL20 MG PO (00:44)
[2018-11-28] MEDS ORDERED: MOBIC7.5 MG PO (00:45)
[2018-11-28] MEDS ORDERED: SEROQUEL300 MG PO (00:46)
--- NOTE | 2018-11-28 01:02 | NUR ---
RECIEVED REPORT FROM SHY RN IN ER AT 2576. ARRIVED TO FLOOR AT 0006 ON STRETCHER. ABLE TO TRANSFER SELF TO BED. VERY LETHARGIC. AROUSES TO VERBAL STIMULI. IV TO RIGHT AC WITH BANNANNA BAG INFUSING. NO REDNESS OR SWELLING TO AREA. LUNG SOUNDS CLEAR BILATERALLY. ABSX4. NO EDEMA OBSERVED. DENIES ANY NEEDS AT THIS TIME.
[2018-11-28 04:31] LABS: BASOPHILS 0.2 % (0-2); EOSINOPHILS 0.3 % (0-7); HEMOGLOBIN 11.9 g/dL (13.5-17.5); IMMATURE GRANULOCYTES 0.2 % (0-5); LYMPHOCYTES 26.4 % (15-50); MCH 29.5 pg (26.0-34.0); MCV 84.4 fL (80.0-100.0); MEAN PLATELET VOLUME 10.2 fL (7.4-10.4); MONOCYTES 7.4 % (2-11); NEUTROPHILS 65.5 % (40-80); RBC 4.03 10x6/uL (4.20-6.10); RDW 13.7 % (11.5-14.5); WBC 6.1 10x3/uL (4.8-10.8)
[2018-11-28 04:34] LABS: PLATELET COUNT 146 10x3/uL (130-400)
[2018-11-28 05:09] LABS: CALCIUM 8.3 mg/dL (8.5-10.1); CARBON DIOXIDE 22.7 mmol/L (21.0-32.0); CHLORIDE - SERUM 110 mmol/L (98-107); MAGNESIUM - SERUM 2.5 mg/dL (1.8-2.4); PHOSPHOROUS 3.6 mg/dL (2.5-4.9); SODIUM 142 mmol/L (136-145); UREA NITROGEN 18 mg/dL (7-18)
[2018-11-28 05:15] LABS: CALC OSMOLALITY 283 mosm/kg (275-300); CREATINE KINASE 982 UL (21-232); CREATININE - SERUM 1.1 mg/dL (0.6-1.3); GLUCOSE 80 mg/dL (74-106); eGFR NON AFRICAN AMERICAN 72 mL/min (90-120)
[2018-11-28 05:16] LABS: CKMB 24.5 U/L (0.0-3.6)
[2018-11-28 13:45] LABS: % SATURATION 19 % (15-55); IRON 53 ug/dl (35-150); TOTAL IRON BIND CAPACITY 269 ug/dl (260-445); UNSAT IRON BIND CAPACITY 216 ug/dl (150-375)
--- NOTE | 2018-11-28 13:56 | NUR ---
ALERT AND ORIENTED X4. SITTING UP IN BED. VERIFY NIECE MARIA L CAN BE PROVIDED INFORMATION REGARDING PATIENT PER PATIENT. FAMILY NOT ADDRESS AND CONTACT NUMBER DOCUMENTED AND GIVEN TO CASE MANAGEMENT. DENIES ANY NEEDS AT THIS TIME. CONTINUE PLAN OF CARE AND SAFETY PRECAUTIONS.
[2018-11-28 14:13] LABS: FERRITIN 345 ng/mL (3-244)
--- NOTE | 2018-11-28 16:14 | MORECARE ---
CASE MANAGEMENT DISCHARGE SUMMARY PATIENT: MARGOTH LOPEZ UNIT: [id number] ADM DATE: 11/27/18 AGE: 63 : 57 SEX: M ROOM/BED: D.2109 AUTHOR: SHAVONNE DE JESUS PHYSICIAN: REFERRING PHYSICIAN: JONATHON CHAMBERS MD DATE OF SERVICE: 11/28/18 Discharge Plan Patient Name: MARGOTH LOPEZ Facility: [facility]:[place] : 1955 Planned Disposition: Home Anticipated Discharge Date: 11/29/18 Discharge Date: Expected LOS: 2 Initial Reviewer: [email or web address] Initial Review Date: 11/27/2018 Generated: 11/28/18 5:13 pm DCP- Discharge Planning Updated by [email or web address]: Cassandra Morgan on 11/28/18 11:[address] 11/27 CM met with nephew per his request, to discuss options to assist with obtaining Medical/Financial POA. Family is concerned with patient's repeated ETOH intoxication, reported aggressive behavior to others. Nephew: Matt Cottrell #[phone], would like for the patient "to be committed, ETOH rehab does not work on him.". Reported that patient uses no DME, receives SSDI. Reportedly takes antipsychotics with ETOH. CM spoke briefly with patient to obtain permission to speak with family member and he nods his head yes, but is unable to give verbal permission. CM advised family that since patient has an altered mental status that he is not legally able to sign a POA, at present. Urged nephew to seek advice at the [facility] [address] [place] regarding their course of action. Nephew states that he cannot afford an county attorney. CM will assist PRN with any further needs. Cassandra Morgan RN Patient Name: MARGOTH LOPEZ Page [id number] at 1614 All edits/amendments must be made on the electronic document DICTATION DATE: 11/28/181612 SHEET METAL WELDER: SHWETHA 11/28/18 161 RPT#: [id number] DC DATE: STATUS: ADM IN [facility] [address] [place] [address] END OF REPORT
--- NOTE | 2018-11-28 16:34 | MORECARE ---
CASE MANAGEMENT DISCHARGE SUMMARY PATIENT: AMRGOTH LOPEZ UNIT: [id number] ADM DATE: 11/27/18 AGE: 63 : 56 SEX: M ROOM/BED: D.2106 AUTHOR: NEAL,DOC PHYSICIAN: REFERRING PHYSICIAN: JONATHON CHAMBERS MD DATE OF SERVICE: 11/28/18 Discharge Plan Patient Name: MARGOTH LOPEZ Facility: [facility]:[place] : 1955 Planned Disposition: Home Anticipated Discharge Date: 11/29/18 Discharge Date: Expected LOS: 2 Initial Reviewer: [email or web address] Initial Review Date: 11/27/2018 Generated: 11/28/18 5:34 pm DCP- Discharge Planning Updated by [email or web address]: Cassandra Morgan on 11/28/18 11:[address] 11/27 CM met with nephew per his request, to discuss options to assist with obtaining Medical/Financial POA. Family is concerned with patient's repeated ETOH intoxication, reported aggressive behavior to others. Nephew: Matt Cottrell #[phone], would like for the patient "to be committed, ETOH rehab does not work on him.". Reported that patient uses no DME, receives SSDI. Reportedly takes antipsychotics with ETOH. CM spoke briefly with patient to obtain permission to speak with family member and he nods his head yes, but is unable to give verbal permission. CM advised family that since patient has an altered mental status that he is not legally able to sign a POA, at present. Urged nephew to seek advice at the [facility] regarding their course of action. Nephew states that he cannot afford an state attorney. CM will assist PRN with any further needs. Cassandra Morgan RN DCPIA - Discharge Planning Initial Assessment Updated by [email or web address]: Steve Tavarez on 11/28/18 4:25 pm * Is the patient Alert and Oriented? Yes * How many steps to enter\\exit or inside your home? 20 * PCP DR. MEGAN LALA * Pharmacy [facility] * Preadmission Environment Home with Family * ADLs Independent * Equipment Other * Other Equipment BLOOD PRESSURE MONITOR NO MEDICAL EQUIPMENT PROVIDER PREFERENCE * List name and contact numbers for known caregivers / representatives who currently or will assist patient after discharge: KELSIE LOCKETT, * Verbal permission to speak to the caregivers and representatives has been obtained from the patient. Yes * Community resources currently utilized None * Please name any agencies selected above. NONE * Additional services required to return to the preadmission environment? No * Can the patient safely return to the preadmission environment? Yes * Has this patient been hospitalized within the prior 30 days at any hospital? No Last DP export: 11/28/18 3:14 p Patient Name: MARGOTH LOPEZ Page [id number] at 1634 All edits/amendments must be made on the electronic document DICTATION DATE: 11/28/181632 LOAN SERVICING OFFICER: SWHETHA 11/28/18 163 RPT#: [id number] DC DATE: STATUS: ADM IN [facility] [address] [place] [address] END OF REPORT
--- NOTE | 2018-11-28 16:45 | MORECARE ---
CASE MANAGEMENT DISCHARGE SUMMARY PATIENT: MARGOTH LOPEZ UNIT: [id number] ADM DATE: 11/27/18 AGE: 63 : 57 SEX: M ROOM/BED: D.2106 AUTHOR: NEAL,DOC PHYSICIAN: REFERRING PHYSICIAN: JONATHNO CHAMBERS MD DATE OF SERVICE: 11/28/18 Discharge Plan Patient Name: MARGOTH LOPEZ Facility: [facility]:[place] : 1955 Planned Disposition: Home Anticipated Discharge Date: 11/29/18 Discharge Date: Expected LOS: 2 Initial Reviewer: [email or web address] Initial Review Date: 11/27/2018 Generated: 11/28/18 5:45 pm Comments DCP- Discharge Planning Updated by [email or web address]: Steve Tavarez on 11/28/18 3:[address] Patient Name: MARGOTH LOPEZ Admission Status: ER Accout number: [id number] Admission Date: 11-27-2018 : 1955 Admission Diagnosis: Attending: REYES, Current LOS: 1 Anticipated DC Date: 11-29-2018 Planned Disposition: Home Primary Insurance: [employer] CHOICE PPO MCR ADVANT Discharge Planning Comments: CM RECEIVED NOTE FROM BEDSIDE NURSE INDICATING PT'S FAMILY REPORT PT IS HOMELESS, PLANS TO MOVE IN WITH JAIME LISA AT [address] [place] [address], [facility], . NURSE INFORMED CM THAT PT DOES WANT INPATIENT DRUG OR ALCOHOL TREATMENT. CM MET WITH PT IN ROOM TO DISCUSS DISCHARGE PLANNING AND NEEDS. PT REPORTS LIVING AT HOME INDEPENDENTLY WITH HIS NEPHEW IN THE COTTAGE BEHIND THE HOUSE. PT HAS NO MEDICAL EQUIPMENT AND NO OUTSIDE SERVICES ASSISTING IN THE HOME. PT HAS BEEN TO ALCOHOL TREATMENT INPATIENTIN [place] 6 MONTHS AGO, HAD 4 MONTHS OF SOBRIETY AND THEN " STOPPED DOING WHAT I'M SUPPOSED TO BE DOING." PT ATTENDS AT THE LAST HOUSE ON THE BLOCK; PT ALSO GETS SERVICES AT [facility]. CM DISCUSSED AVAILABILITY OF HOME HEALTH, REHAB SERVICES AND MEDICAL EQUIPMENT. PT PROVIDED TREATMENT AND OUTPATIENT SUPPORT INFORMATION FOR DRUG AND ALCOHOL TREATMENT. PT DENIES DISCHARGE NEEDS, REPORTS HIS NEPHEW WILL PICK HIM UP FOR DISCHARGE HOME. PT STATES HE IS NOT GOING TO INPATIENT DRUG OR ALCOHOL TREATMENT. [facility] AND IS SCHEDULED TO SEE HIS THERAPIST ON WEDNESDAY, MRS. LEARY ON [address]. PT STATES SHE MAY TRY TO ARRANGE DAY TREATMENT FOR HIM 5 DAYS PER WEEK. PT REPORTS HE HAS BEEN DRINKING 2-3, 20 OUNCE BEERS 5 DAYS WEEKLY AND DOES NOT NORMALLY DRINK ON WEEKENDS. PT REPORTS HE DOES NOT USE DRUGS DAILY AND SNORTED WHITE POWDER THAT HIS FRIEND GAVE HIM AND STATES IT WAS A STUPID MISTAKE. PT AGAIN THANKS CM FOR THE INFORMATION AND STATES HE HAS MADE ARRANGEMENTS FOR HIMSELF. PT PLANS TO DISCHARGE HOME WITH FAMILY, REPORTS MAKING FOLLOW UP ARRANGEMENTS FOR HIMSELF ON [facility] WITH HIS THERAPIST. PT DECLINED INPATIENT DRUG/ALCOHOL TREATMENT. Higher Level Teaching Assistant: Steve Tavarez DCP- Discharge Planning Updated by [email or web address]: Cassandra Morgan on 11/28/18 11:[address] 11/27 CM met with nephew per his request, to discuss options to assist with obtaining Medical/Financial POA. Family is concerned with patient's repeated ETOH intoxication, reported aggressive behavior to others. Nephew: Matt Cottrell #[phone], would like for the patient "to be committed, ETOH rehab does not work on him.". Reported that patient uses no DME, receives SSDI. Reportedly takes antipsychotics with ETOH. CM spoke briefly with patient to obtain permission to speak with family member and he nods his head yes, but is unable to give verbal permission. CM advised family that since patient has an altered mental status that he is not legally able to sign a POA, at present. Urged nephew to seek advice at the [facility] [address] [place] regarding their course of action. Nephew states that he cannot afford an employment attorney. CM will assist PRN with any further needs. Cassandra Morgan RN DCPIA - Discharge Planning Initial Assessment Updated by [email or web address]: Steve Tavarez on 11/28/18 4:25 pm * Is the patient Alert and Oriented? Yes * How many steps to enter\\exit or inside your home? 20 * PCP DR. MEGAN LALA * Pharmacy [facility] * Preadmission Environment Home with Family * ADLs Independent * Equipment Other * Other Equipment BLOOD PRESSURE MONITOR NO MEDICAL EQUIPMENT PROVIDER PREFERENCE * List name and contact numbers for known caregivers / representatives who currently or will assist patient after discharge: KELSIE LOCKETT, * Verbal permission to speak to the caregivers and representatives has been obtained from the patient. Yes * Community resources currently utilized None * Please name any agencies selected above. NONE * Additional services required to return to the preadmission environment? No * Can the patient safely return to the preadmission environment? Yes * Has this patient been hospitalized within the prior 30 days at any hospital? No Last DP export: 11/28/18 3:34 p Patient Name: MARGOTH LOPEZ Page [id number] at 1645 All edits/amendments must be made on the electronic document DICTATION DATE: 11/28/181644 SENIOR IT RECRUITER: SHWETHA 11/28/181644 RPT#: [id number] DC DATE: STATUS: ADM IN [facility] [address] [place] [address] END OF REPORT
--- NOTE | 2018-11-28 19:29 | NUR ---
RECIEVED LAYING IN BED WITH BLANKET OVER HIS HEAD. EASILY AROUSED WITH VERBAL STIMULI. IV TO RIGHT AC SL.. ORIENTED X4. REQUESTING SOMETHING TO EAT AND DRINK. SANDWICH BOX AND SODA GIVEN TO PT. DENIES ANY OTHER NEEDS.
[2018-11-29] VITALS: BP 143/93
[2018-11-29 04:00] VITALS: BP 145/931
[2018-11-29 06:51] LABS: BASOPHILS 0.3 % (0-2); EOSINOPHILS 1.3 % (0-7); HEMOGLOBIN 12.9 g/dL (13.5-17.5); LYMPHOCYTES 31.7 % (15-50); MCH 29.9 pg (26.0-34.0); MCHC 35.8 g/dL (31.0-37.0); MCV 83.5 fL (80.0-100.0); MEAN PLATELET VOLUME 10.9 fL (7.4-10.4); MONOCYTES 13.7 % (2-11); PLATELET COUNT 152 10x3/uL (130-400); RBC 4.31 10x6/uL (4.20-6.10)
[2018-11-29 06:55] LABS: CALC OSMOLALITY 279 mosm/kg (275-300); CALCIUM 8.3 mg/dL (8.5-10.1); CARBON DIOXIDE 26.8 mmol/L (21.0-32.0); CHLORIDE - SERUM 107 mmol/L (98-107); GLUCOSE 113 mg/dL (74-106); POTASSIUM - SERUM 3.6 mmol/L (3.5-5.1); SODIUM 140 mmol/L (136-145); eGFR NON AFRICAN AMERICAN 80 mL/min (90-120)
[2018-11-29 07:01] LABS: UREA NITROGEN 12 mg/dL (7-18)
[2018-11-29 07:20] LABS: WBC 3.9 10x3/uL (4.8-10.8)
[2018-11-29 11:49] VITALS: BP 128/84
--- NOTE | 2018-11-29 14:05 | NUR ---
ALERT AND ORIENTED X4. SITTING UP IN CHAIR. NOTIFY KELSIE LISA OF DISCHARGE ORDERS. MARIA L REPLIES, "I'M SORRY I JUST CAN'T. HE CAN CALL SOMEONE ELSE FOR A RIDE. HE CAN'T STAY WITH US." DISCHARGE INSTRUCTIONS GIVEN VERBALLY AND WRITTEN. REQUEST [facility] PRESCRIPTION. CALL [facility] FOR PRESCRIPTION. BRISA STATES, "NO HE CAN'T HAVE IT BECAUSE HE IS PROBABLY JUST SABINO TO GO BACK OUT AND DRINK." [facility] BEGIN TREATMENT 11-30-18 AT 1300. PLANS TO TAKE PUBLIC TRANSPORTATION. DISCHARGE PAPERS SIGNED ON CHART. DC RT AC IV TIP INTACT. ESCORT TO FRONT DOOR VIA WHEELCHAIR. REMAINS FREE FROM INJURY.
--- NOTE | 2018-11-29 14:08 | MORECARE ---
CASE MANAGEMENT DISCHARGE SUMMARY PATIENT: MARGOTH LOPEZ UNIT: [id number] ADM DATE: 11/27/18 AGE: 63 : 57 SEX: M ROOM/BED: D.2109 AUTHOR: SHAVONNE DE JESUS PHYSICIAN: REFERRING PHYSICIAN: JONATHON CHAMBERS MD DATE OF SERVICE: 11/29/18 Discharge Plan Patient Name: MARGOTH LOPEZ Facility: [facility]:[place] : 1955 Planned Disposition: Home Anticipated Discharge Date: 11/29/18 Discharge Date: Expected LOS: 2 Initial Reviewer: [email or web address] Initial Review Date: 11/27/2018 Generated: 11/29/18 3:07 pm Comments DCP- Discharge Planning Updated by [email or web address]: Steve Tavarez on 11/29/18 1:[address] Patient Name: MARGOTH LOPEZ Encounter No: [id number] : 1955 Primary Insurance: HUMANA CHOICE PPO MCR ADVANT Anticipated DC Date: 11-29-2018 Planned Disposition: Home DCP follow-up note: CM SPOKE TO BEDSIDE NURSE WHO INFORMED CM THAT PT'S NIECE CAME BY, DROPPED OFF PT'S IMPORTANT PAPERS AND STATED THAT THEY ARE TIRED AND ARE NOT GOING TO BE ABLE TO HELP PT WITH A PLACE TO STAY OR TRANSPORTATION. CM WENT IN TO NOTIFY PT WHO REPORTS HE HAS ALREADY TALKED TO FAMILY AND KNOWS. PT REPORTS HE HAS FRIENDS TO STAY WITH AND DOES HAVE MONEY FOR A TAXI OR THE BUS TO WHERE HE IS GOING. PT DENIES NEEDS. CM NOTIFIED BEDSIDE NURSE. Steve Tavarez, CASE MANAGEMENT DCP- Discharge Planning Updated by [email or web address]: Steve Tavarez on 11/28/18 3:[address] Patient Name: MARGOTH LOPEZ Admission Status: ER Accout number: [id number] Admission Date: 11-27-2018 : 1955 Admission Diagnosis: Attending: REYES, Current LOS: 1 Anticipated DC Date: 11-29-2018 Planned Disposition: Home Primary Insurance: HUMANA CHOICE PPO MCR ADVANT Discharge Planning Comments: CM RECEIVED NOTE FROM BEDSIDE NURSE INDICATING PT'S FAMILY REPORT PT IS HOMELESS, PLANS TO MOVE IN WITH DEIRDRESCOTTY MARIA L AT [address] [place] [id number], . NURSE INFORMED CM THAT PT DOES WANT INPATIENT DRUG OR ALCOHOL TREATMENT. CM MET WITH PT IN ROOM TO DISCUSS DISCHARGE PLANNING AND NEEDS. PT REPORTS LIVING AT HOME INDEPENDENTLY WITH HIS NEPHEW IN THE COTTAGE BEHIND THE HOUSE. PT HAS NO MEDICAL EQUIPMENT AND NO OUTSIDE SERVICES ASSISTING IN THE HOME. PT HAS BEEN TO [place]COHOL TREAT[place]IENT[place] 6 MONTHS AGO, HAD 4 MONTHS OF SOBRIETY AND THEN " STOPPED DOING WHAT I'M SUPPOSED TO BE DOING." PT ATTENDS AA AT THE LAST HOUSE ON THE BLOCK; PT ALSO GETS SERVICES AT [facility]. CM DISCUSSED AVAILABILITY OF HOME HEALTH, REHAB SERVICES AND MEDICAL EQUIPMENT. PT PROVIDED TREATMENT AND OUTPATIENT SUPPORT INFORMATION FOR DRUG AND ALCOHOL TREATMENT. PT DENIES DISCHARGE NEEDS, REPORTS HIS NEPHEW WILL PICK HIM UP FOR DISCHARGE HOME. PT STATES HE IS NOT GOING TO INPATIENT DRUG OR ALCOHOL TREATMENT. PT REPORTS HE CALLED [facility] THIS MORNING AND IS SCHEDULED TO SEE HIS THERAPIST ON WEDNESDAY, MRS. LEARY ON [address]. PT STATES SHE MAY TRY TO ARRANGE DAY TREATMENT FOR HIM 5 DAYS PER WEEK. PT REPORTS HE HAS BEEN DRINKING 2-3, 20 OUNCE BEERS 5 DAYS WEEKLY AND DOES NOT NORMALLY DRINK ON WEEKENDS. PT REPORTS HE DOES NOT USE DRUGS DAILY AND SNORTED WHITE POWDER THAT HIS FRIEND GAVE HIM AND STATES IT WAS A STUPID MISTAKE. PT AGAIN THANKS CM FOR THE INFORMATION AND STATES HE HAS MADE ARRANGEMENTS FOR HIMSELF. PT PLANS TO DISCHARGE HOME WITH FAMILY, REPORTS MAKING FOLLOW UP ARRANGEMENTS FOR HIMSELF ON WEDNESDAY AT [facility] WITH HIS THERAPIST. PT DECLINED INPATIENT DRUG/ALCOHOL TREATMENT. Scrum Coach: Steve Tavarez DCP- Discharge Planning Updated by [id number]: Cassandra Morgan on 11/28/18 11:[address] 11/27 CM met with nephew per his request, to discuss options to assist with obtaining Medical/Financial POA. Family is concerned with patient's repeated ETOH intoxication, reported aggressive behavior to others. Nephew: Matt Cottrell #[phone], would like for the patient "to be committed, ETOH rehab does not work on him.". Reported that patient uses no DME, receives SSDI. Reportedly takes antipsychotics with ETOH. CM spoke briefly with patient to obtain permission to speak with family member and he nods his head yes, but is unable to give verbal permission. CM advised family that since patient has an altered mental status that he is not legally able to sign a POA, at present. Urged nephew to seek advice at the [facility] regarding their course of action. Nephew states that he cannot afford an document review attorney. CM will assist PRN with any further needs. Cassandra Morgan RN DCPIA - Discharge Planning Initial Assessment Updated by [email or web address]: Steve Tavarez on 11/28/18 4:25 pm * Is the patient Alert and Oriented? Yes * How many steps to enter\\exit or inside your home? 20 * PCP DR. MEGAN LALA * Pharmacy [facility] * Preadmission Environment Home with Family * ADLs Independent * Equipment Other * Other Equipment BLOOD PRESSURE MONITOR NO MEDICAL EQUIPMENT PROVIDER PREFERENCE * List name and contact numbers for known caregivers / representatives who currently or will assist patient after discharge: KELSIE LOCKETT, * Verbal permission to speak to the caregivers and representatives has been obtained from the patient. Yes * Community resources currently utilized None * Please name any agencies selected above. NONE * Additional services required to return to the preadmission environment? No * Can the patient safely return to the preadmission environment? Yes * Has this patient been hospitalized within the prior 30 days at any hospital? No Coverage Notice Reviewer: [email or web address] Toney Walsh Notice Issued Date-Time: 11/29/2018 9:47 Notice Type: Medicare Outpatient Observation Notice Notice Delivered To: Patient Relationship to Patient: Self Outside Sales Representative Name: Delivery Method: HAND - Hand Delivered Shaye Days: Prior Verbal Notification: Recipient Understood Notice: Yes Recipient Signature: Yes Med Rec Note Co-signed by Attending: Coverage Notice Comment: Last DP export: 11/28/18 3:45 p Patient Name: MARGOTH LOPEZ Page 16531 at 1408 All edits/amendments must be made on the electronic document DICTATION DATE: 11/29/181406 VOLUNTEER SERVICES DIRECTOR: SHWETHA 11/29/181406 RPT#: [id number] DC DATE: STATUS: ADM IN [facility] [address] [place] [address] END OF REPORT
== END 2018-11-29 14:09 | disposition home or self-care (01) ==
LOC: D.ER 17:54 → D.M2 22:10 → OBSVTIME 22:10 → D.M2 11-29 14:09
PROVIDERS: Family Medicine; Internal Medicine Nephrology; ADMIT Family Medicine; ATTEND Family Medicine
DX: F10.229 Alcohol dependence with intoxication, unspecified (principal); T51.0X4A Toxic effect of ethanol, undetermined, initial encounter; G92 Toxic encephalopathy; F14.10 Cocaine abuse, uncomplicated; Y90.6 Blood alcohol level of 120-199 mg/100 ml; F20.9 Schizophrenia, unspecified; N17.9 Acute kidney failure, unspecified; D64.9 Anemia, unspecified

== ENCOUNTER 2018-12-06 19:37 | Emergency (ER) | payer MEDICARE, MEDICAID ==
[~2018-12-06] VITALS: Ht 167.6 cm; Wt 81.8 kg
[~2018-12-06 19:37] MED LIST changes: +LISINOPRIL20 MG PO; +MOBIC7.5 MG PO; +SEROQUEL300 MG PO
[2018-12-06 19:38] VITALS: Ht 167.6 cm; Wt 81.8 kg
[2018-12-06 20:39] LABS: BASOPHILS 0.2 % (0-2); EOSINOPHILS 1.4 % (0-7); HEMATOCRIT 37.4 % (42.0-54.0); HEMOGLOBIN 13.3 g/dL (13.5-17.5); LYMPHOCYTES 38.1 % (15-50); MCH 29.9 pg (26.0-34.0); MCHC 35.6 g/dL (31.0-37.0); MEAN PLATELET VOLUME 10.9 fL (7.4-10.4); MONOCYTES 12.6 % (2-11); NEUTROPHILS 47.7 % (40-80); PLATELET COUNT 157 10x3/uL (130-400); RBC 4.45 10x6/uL (4.20-6.10); RDW 13.4 % (11.5-14.5); WBC 5.7 10x3/uL (4.8-10.8)
[2018-12-06 20:47] LABS: APTT 26.6 SECONDS (22.8-39.4); INR 1.12 (0.85-1.17); PROTIME 13.9 SECONDS (11.6-15.0)
[2018-12-06 20:52] LABS: ALBUMIN 3.5 g/dL (3.4-5.0); ALKALINE PHOSPHATASE 58 U/L (46-116); ALT (SGPT) 73 U/L (10-68); BILIRUBIN - TOTAL 0.23 mg/dL (0.2-1.3); CALC OSMOLALITY 283 mosm/kg (275-300); CARBON DIOXIDE 29.7 mmol/L (21.0-32.0); CHLORIDE - SERUM 103 mmol/L (98-107); CREATININE - SERUM 1.1 mg/dL (0.6-1.3); PROTEIN - SERUM 7.1 g/dL (6.4-8.2); SODIUM 139 mmol/L (136-145); UREA NITROGEN 16 mg/dL (7-18); eGFR NON AFRICAN AMERICAN 72 mL/min (90-120)
[2018-12-06 20:55] LABS: GLUCOSE 196 mg/dL (74-106)
[2018-12-06 21:03] LABS: APPEARANCE CLEAR (CLEAR); BILIRUBIN NEGATIVE (NEGATIVE); COLOR YELLOW (YELLOW); GLUCOSE 500 mg/dL (NEGATIVE); KETONE NEGATIVE (NEGATIVE); NITRITE NEGATIVE (NEGATIVE); PROTEIN NEGATIVE (NEGATIVE); UDS - AMPHET NEGATIVE QUAL (NEGATIVE); UDS - BARB NEGATIVE QUAL (NEGATIVE); UDS - BENZO POSITIVE QUAL (NEGATIVE); UDS - COCAINE NEGATIVE QUAL (NEGATIVE); UDS - OPIATE NEGATIVE QUAL (NEGATIVE); UDS - PCP NEGATIVE QUAL (NEGATIVE); UDS - THC NEGATIVE QUAL (NEGATIVE); UROBILINOGEN NORMAL (NORMAL)
[2018-12-06 21:03] LABS: CREATINE KINASE 139 UL (21-232)
[2018-12-06 21:05] LABS: TROPONIN-I < 0.017 ng/mL (0.000-0.060)
[2018-12-06] MEDS ORDERED: LEXAPRO10 MG PO ×2 (21:50→21:56)
[2018-12-06] MEDS ORDERED: PROZAC40 MG PO ×2 (21:51→21:56)
[2018-12-06] MEDS ORDERED: BENZTROPINE MESY1 MG PO (21:51)
[2018-12-06] MEDS ORDERED: TRAZODONE HCL150 MG PO ×2 (21:51→21:56)
[2018-12-06] MEDS ORDERED: ATARAX 25 MG TA25 MG PO ×2 (21:51→21:56)
[2018-12-06] MEDS ORDERED: ZYPREXA5 MG PO (21:52)
[2018-12-06] MEDS ORDERED: LISINOPRIL20 MG PO (21:56)
[2018-12-06] MEDS ORDERED: SEROQUEL300 MG PO (21:56)
[2018-12-06] MEDS ORDERED: MOBIC7.5 MG PO (21:56)
[2018-12-06 22:23] VITALS: BP 157/92
== END 2018-12-06 22:24 | disposition other institution (70) ==
LOC: D.ER 19:37
PROVIDERS: Emergency Medicine
DX: R41.0 Disorientation, unspecified (principal)

== ENCOUNTER 2019-05-03 08:46 | Emergency (ER) | payer MEDICARE, MEDICAID ==
[~2019-05-03] VITALS: Ht 167.6 cm; Wt 80.0 kg
[~2019-05-03 08:46] MED LIST changes: +ATARAX 25 MG TA25 MG PO; +BENZTROPINE MESY1 MG PO; +LEXAPRO10 MG PO; +PROZAC40 MG PO; +TRAZODONE HCL150 MG PO; +ZYPREXA5 MG PO
[2019-05-03 08:58] VITALS: Ht 167.6 cm; Wt 80.0 kg
[2019-05-03 10:38] VITALS: BP 152/86
== END 2019-05-03 10:30 | disposition home or self-care (01) ==
LOC: D.ER 08:46
DX: S82.52XA Displaced fracture of medial malleolus of left tibia, initial encounter for closed fracture (principal); X50.1XXA Overexertion from prolonged static or awkward postures, initial encounter; Y93.9 Activity, unspecified; Y92.9 Unspecified place or not applicable; I10 Essential (primary) hypertension